=== PATIENT | male | born 1985 | race Caucasian/White ===

== ENCOUNTER 2017-09-01 01:20 | Emergency (ER) | payer MEDICARE, MEDICAID ==
[~2017-09-01] VITALS: Ht 188 cm; Wt 145.1 kg
[2017-09-01] MEDS ORDERED: ABILIFY2 MG ORAL (01:29)
[2017-09-01] MEDS ORDERED: SIMVASTATIN5 MG ORAL (01:30)
[2017-09-01] MEDS ORDERED: LOVENOX10 MG SUBQ (01:30)
[2017-09-01] MEDS ORDERED: ASPIRIN81 MG ORAL (01:30)
[2017-09-01 01:35] VITALS: BP 134/93
[2017-09-01 02:30] VITALS: BP 134/93
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
== END 2017-09-01 02:30 | disposition left against medical advice (07) ==
LOC: EDBD 01:20 → EMR 02:00
DX: R51 Headache (principal); R07.89 Other chest pain; Y08.89XA Assault by other specified means, initial encounter; Y92.9 Unspecified place or not applicable; Z86.73 Personal history of transient ischemic attack (TIA), and cerebral infarction without residual deficits
CPT/HCPCS: 99282

== ENCOUNTER 2017-09-01 15:17 | Inpatient (IN) | payer MEDICARE, MEDICAID ==
[~2017-09-01] VITALS: Ht 182.9 cm; Wt 158.8 kg
[~2017-09-01 15:17] MED LIST: ABILIFY2 MG ORAL; ASPIRIN81 MG ORAL; LOVENOX10 MG SUBQ; SIMVASTATIN5 MG ORAL
[2017-09-01 15:30] VITALS: BP 137/60
--- NOTE | 2017-09-01 15:39 | Emergency Room Report ---
History of Present Illness General Chief Complaint: General Complaint Source: Patient Present Illness HPI 32-year-old male, history of schizophrenia, history of CVA In 2 weeks ago, on Lovenox, with residual right lower trejo any weakness, presenting with rectal bleeding. Patient states that he has had rectal bleeding intermittently for the last 2-3 days. It is bright red blood but is sometimes also mixed with the brown stool. States that it does not happen all the time, states that it happened one time today, but he also had a completely normal brown episode of stool today. Denies any syncopal episodes, no abdominal pain, no chest pain shortness of breath or lightheadedness. Patient states that he has been injecting himself with the Lovenox. Patient was seen yesterday in the emergency room, and he eloped from the emergency room because he states that he did not like the doctor or the nurse caring for him. Patient states that he went to a bench, was found sleeping on the bench, was brought by EMS to [facility], was seen by psychiatry and then discharged last night. He states that he told them about the rectal bleeding but"did not do anything" Allergies: Coded Allergies: PHENYTOIN (Verified Allergy, Mild, 09/01/17) Patient History Past Medical History: see triage record Past Surgical History: none Pertinent Family History: none Reviewed Nursing Documentation: PMH: Agreed; PSxH: Agreed Nursing Documentation-PMH History Of Psychiatric Problem: Yes - SCHIZO Hx Cerebrovascular Accident: Yes Review of Systems All Other Systems: negative except mentioned in HPI Physical Exam Vital Signs Date Time Temp Pulse Resp B/P (MAP) Pulse Ox O2 Delivery O2 Flow Rate FiO2 09/01/17 15:12 97.7 80 16 97 Room Air 97.7 Sp02 EP Interpretation: reviewed, normal General Appearance: normal inspection, well appearing, no apparent distress, alert, GCS 15, non-toxic Head: normocephalic, atraumatic Eyes: bilateral eye normal inspection, bilateral eye PERRL, bilateral eye EOMI ENT: normal ENT inspection, normal pharynx, normal voice, moist mucus membranes Neck: normal inspection, full range of motion, supple Respiratory: normal inspection, lungs clear, normal breath sounds, no respiratory distress, no retraction, no wheezing, speaking full sentences, chest symmetrical Cardiovascular #1: normal inspection, regular rate, rhythm, no edema, normal capillary refill Cardiovascular #2: 2+ radial (R), 2+ radial (L) Gastrointestinal: normal inspection, non tender, soft, non-distended, no guarding Rectal: other - Brown stool which is guaiac negative, no hemorrhoids Musculoskeletal: normal inspection, back normal, normal range of motion, non- tender Neurologic: normal inspection, alert, oriented x3, responsive, motor strength/ tone normal, sensory intact, normal gait, speech normal Psychiatric: normal inspection, judgement/insight normal, memory normal Skin: normal inspection, normal color, no rash, warm/dry, well hydrated, normal turgor Medical Decision Making Diagnostic Impression: Primary Impression: Rectal bleeding ER Course 32-year-old male with rectal bleeding, on Lovenox Hemodynamically stable DDX: Coagulopathy, hemorrhoids, AVM, diverticulosis Plan: Obtain labs, ua ER course: Patient has been monitored during ED stay, HD stable + bloody bowel movements in ED Disposition: Patient is to be admitted to tele D/W hospitalist Dr Xavier Please note that this Emergency Department Report was dictated using [employer] ambassador technology software, occasionally this can lead to erroneous entry secondary to interpretation by the dictation equipment. EKG Diagnostic Results EP Interpretation: Yes Rate: normal Rhythm: NSR ST Segments: No acute changes ASA given to patient: No Rhythm Strip EP Interpretation: Yes Rate: 79 Rhythm: NSR, no PVCs, no ectopy Last Vital Signs Date Time Temp Pulse Resp B/P (MAP) Pulse Ox O2 Delivery O2 Flow Rate FiO2 09/01/17 15:12 97.7 80 16 97 Room Air 97.7 Disposition: ADMITTED INPATIENT Condition: Serious Farida Pinedo M.D. Sep 01, 2017 15:39
[2017-09-01 16:08] LABS: BASOPHILS % (AUTO) 0.8 % (0.0-2.0); EOSINOPHILS % (AUTO) 1.5 % (0.0-3.0); HEMATOCRIT 47.7 % (42.0-52.0); HEMOGLOBIN 16.5 G/DL (14.2-18.0); LYMPHOCYTES % (AUTO) 11.4 % (20.0-45.0); MEAN CORPUSCULAR VOLUME 84 FL (80-99); MONOCYTES % (AUTO) 7.6 % (1.0-10.0); NEUTROPHILS % (AUTO) 78.7 % (45.0-75.0); PLATELET COUNT 317 K/UL (150-450); RED BLOOD COUNT 5.69 M/UL (4.70-6.10); RED CELL DISTRIBUTION WIDTH 12.8 % (11.6-14.8); WHITE BLOOD COUNT 11.5 K/UL (4.8-10.8)
[2017-09-01 16:14] LABS: BILIRUBIN, URINE NEGATIVE (NEGATIVE); COLOR,URINE BROWN; GLUCOSE, URINE (UA) NEGATIVE (NEGATIVE); KETONES,URINE 3+ (NEGATIVE); LEUKOCYTE ESTERASE ,URINE 1+ (NEGATIVE); NITRITE,URINE NEGATIVE (NEGATIVE); PH,URINE 5 (4.5-8.0); PROTEIN,URINE 1+ (NEGATIVE); UROBILINOGEN,URINE 1 MG/DL (0.0-1.0)
[2017-09-01 16:15] LABS: APPEARANCE,URINE SLIGHTLY CLOUDY
[2017-09-01 16:17] LABS: ANION GAP 9 mmol/L (5-15); BLOOD UREA NITROGEN 12 mg/dL (7-18); CARBON DIOXIDE 29 MMOL/L (21-32); CHLORIDE 105 MMOL/L (98-107); CREATININE 1.2 MG/DL (0.55-1.30); POTASSIUM 3.3 MMOL/L (3.5-5.1); SODIUM 143 MMOL/L (136-145)
[2017-09-01 16:22] LABS: ALANINE AMINOTRANSFERASE 91 U/L (12-78); ALBUMIN 3.9 G/DL (3.4-5.0); ALBUMIN/GLOBULIN RATIO 1.1 (1.0-2.7); ALKALINE PHOSPHATASE 75 U/L (46-116); ASPARTATE AMINO TRANSFERASE 36 U/L (15-37); BILIRUBIN,TOTAL 0.6 MG/DL (0.2-1.0)
[2017-09-01 17:00] VITALS: BP 117/91
[2017-09-01 18:00] VITALS: BP 123/61
[2017-09-01 19:00] VITALS: BP 111/56
[2017-09-01 20:00] VITALS: BP 116/70
--- NOTE | 2017-09-01 20:31 | History & Physical ---
History and Physical History & Physicial HP dictated # [id number] CHARLY DAY Sep 01, 2017 20:31
[2017-09-01] MEDS: ARIPiprazole 2mg tab ORAL SCH (22:03)
[2017-09-01] MEDS: Pantoprazole Inj IVP SCH (22:04)
[2017-09-02] VITALS: BP 103/60
[2017-09-02 04:00] VITALS: BP 107/62
--- NOTE | 2017-09-02 04:15 | History and Physical Report ---
DATE OF ADMISSION: 09/01/2017 CHIEF COMPLAINT: Rectal bleed. HISTORY: This is a 32-year-old white male with a history of schizophrenia. He was at [facility] about two weeks ago and he was diagnosed with CVA with right-sided weakness. He was started on Lovenox and started four or five days ago. For the past few days, he has had severe rectal bleeding intermittently. He came to the emergency room yesterday, but he said he did not like the attitude of the ER physician, so he left, but then he started having large bleeding again when he was with a friend outside and decided to come back to the emergency room. He was admitted with a diagnosis of GI bleed. PAST MEDICAL HISTORY: The patient has a history of schizophrenia as mentioned and recent history of CVA and history of seizures. ALLERGIES: Dilantin causing shortness of breath. SOCIAL HISTORY: The patient has a history of smoking, but he says he stopped [id number] weeks ago. No history of alcohol abuse. REVIEW OF SYSTEMS: As above. PHYSICAL EXAMINATION: GENERAL: The patient is an obese male, in no acute distress. VITAL SIGNS: Blood pressure is 111/56, pulse is 64, temperature 98 degrees, and respirations 16. HEENT: Ona conjunctivae. Anicteric sclerae. NECK: Supple. LUNGS: Clear to auscultation. HEART: S1 and S2 without murmurs or rubs. ABDOMEN: Soft and nontender. EXTREMITIES: No cyanosis or edema. LABORATORY FINDINGS: CBC shows WBC of 11.5, hematocrit is 47.7, hemoglobin is 16.5, and platelets are 217,000. The chemistry panel shows a serum sodium of 142, potassium 3.3, and chloride 105. AST is 36 and ALT is 91. Lipase is 50. Glucose of 85. The UA shows 3+ ketones, unremarkable otherwise. ASSESSMENT: This is a 32-year-old white male with recent cerebrovascular accident and he was started on Lovenox and now he comes in with a few days history of rectal bleed. So far, it does not show on his hematocrit and hemoglobin, but he states he has been lightheaded. PLAN: The patient will be hydrated with IV fluids with the addition of potassium since the patient is hypokalemic. A GI consultation will be obtained. At this time, the patient will be on a clear liquid diet for possible endoscopy. His H and H will be followed closely and the patient will be transfused if needed. The question is if the patient needs to be on Lovenox and I am assuming that there is some embolic phenomenon, so I may ask farm tractor mechanic to come by and also give a consultation. Torsten Xavier M.D. DR: MATTHEW JOB#: [id number] CC:
[2017-09-02 07:18] LABS: BASOPHILS % (AUTO) 0.7 % (0.0-2.0); EOSINOPHILS % (AUTO) 2.9 % (0.0-3.0); HEMATOCRIT 41.4 % (42.0-52.0); HEMOGLOBIN 14.3 G/DL (14.2-18.0); LYMPHOCYTES % (AUTO) 17.7 % (20.0-45.0); MEAN CORPUSCULAR VOLUME 84 FL (80-99); MONOCYTES % (AUTO) 9.8 % (1.0-10.0); NEUTROPHILS % (AUTO) 68.9 % (45.0-75.0); PLATELET COUNT 251 K/UL (150-450); RED BLOOD COUNT 4.91 M/UL (4.70-6.10); RED CELL DISTRIBUTION WIDTH 12.8 % (11.6-14.8); WHITE BLOOD COUNT 7.6 K/UL (4.8-10.8)
[2017-09-02 08:00] VITALS: BP 121/80
[2017-09-02] MEDS: Pantoprazole Inj IVP SCH (08:37)
[2017-09-02] MEDS: ARIPiprazole 2mg tab ORAL SCH (08:37)
[2017-09-02 09:05] VITALS: BP 121/80
[2017-09-02] MEDS ORDERED: Bisacodyl EC 5mg tab ORAL ONE (11:45)
[2017-09-02] MEDS ORDERED: Magnesium Citrate Liq Btl ORAL ONE ×2 (11:45→12:00)
--- NOTE | 2017-09-02 11:50 | General Progress Note ---
Assessment/Plan Problem List: (1) GI bleed ICD Codes: K92.2 - Gastrointestinal hemorrhage, unspecified SNOMED: 87477105 (2) CVA (cerebral infarction) ICD Codes: I63.9 - Cerebral infarction, unspecified SNOMED: 155607598 (3) Seizure ICD Codes: R56.9 - Unspecified convulsions SNOMED: 83178492 Assessment/Plan GI consult follow H/H Discussed with dr Hall Subjective Allergies: Coded Allergies: PHENYTOIN (Verified Allergy, Mild, 09/01/17) Subjective feels hungry wants to eat Objective Last 24 Hour Vital Signs Date Time Temp Pulse Resp B/P (MAP) Pulse Ox O2 Delivery O2 Flow Rate FiO2 09/02/17 09:05 97.7 67 18 121/80 96 Room Air 97.7 09/02/17 04:00 97.3 60 18 107/62 96 Room Air 97.3 09/02/17 04:00 60 09/02/17 00:00 98.1 67 18 103/60 97 98.1 09/02/17 00:00 61 09/01/17 20:00 97.7 64 21 116/70 93 97.7 09/01/17 20:00 71 09/01/17 19:27 98.0 64 16 111/56 96 Room Air 98.0 09/01/17 19:00 64 16 111/56 96 09/01/17 18:00 69 18 123/61 98 09/01/17 17:00 65 17 117/91 98 09/01/17 15:30 98.0 71 20 137/60 98 98.0 09/01/17 15:12 97.7 80 16 12/86 97 Room Air 97.7 Intake and Output 09/01/17 09/02/17 19:00 07:00 Intake Total 1745 ml Output Total 350 ml Balance -350 ml 1745 ml Intake Oral 600 ml IV Total 1145 ml Output Urine Total 350 ml # Voids 1 Laboratory Tests 09/01/17 15:40: White Blood Count 11.5H, Red Blood Count 5.69, Hemoglobin 16.5, Hematocrit 47.7 , Mean Corpuscular Volume 84, Mean Corpuscular Hemoglobin 29.0, Mean Corpuscular Hemoglobin Concent 34.6, Red Cell Distribution Width 12.8, Platelet Count 317, Mean Platelet Volume 7.5, Neutrophils (%) (Auto) 78.7H, Lymphocytes ( %) (Auto) 11.4L, Monocytes (%) (Auto) 7.6, Eosinophils (%) (Auto) 1.5, Basophils (%) (Auto) 0.8, Prothrombin Time 10.1, Prothromb Time International Ratio 1.0, Activated Partial Thromboplast Time 28, Sodium Level 143, Potassium Level 3.3L, Chloride Level 105, Carbon Dioxide Level 29, Anion Gap 9, Blood Urea Nitrogen 12, Creatinine 1.2, Estimat Glomerular Filtration Rate > 60, Glucose Level 85, Calcium Level 9.0, Total Bilirubin 0.6, Aspartate Amino Transf (AST/SGOT) 36, Alanine Aminotransferase (ALT/SGPT) 91H, Alkaline Phosphatase 75, Total Protein 7.4, Albumin 3.9, Globulin 3.5, Albumin/Globulin Ratio 1.1, Lipase 50L 09/01/17 15:50: Urine Color Brown, Urine Appearance Slightly cloudy, Urine pH 5, Urine Specific [place] 1.025, Urine Protein 1+H, Urine Glucose (UA) Negative, Urine Ketones 3+H , Urine Occult Blood Negative, Urine Nitrite Negative, Urine Bilirubin Negative , Urine Urobilinogen 1H, Urine Leukocyte Esterase 1+H, Urine RBC 0-2H, Urine WBC 2-4, Urine Squamous Epithelial Cells Occasional, Urine Bacteria Occasional, Urine Mucus ModerateH 09/02/17 06:15: White Blood Count 7.6, Red Blood Count 4.91, Hemoglobin 14.3, Hematocrit 41.4L, Mean Corpuscular Volume 84, Mean Corpuscular Hemoglobin 29.1, Mean Corpuscular Hemoglobin Concent 34.5, Red Cell Distribution Width 12.8, Platelet Count 251, Mean Platelet Volume 7.6, Neutrophils (%) (Auto) 68.9, Lymphocytes (%) (Auto) 17.7L, Monocytes (%) (Auto) 9.8, Eosinophils (%) (Auto) 2.9, Basophils (%) (Auto ) 0.7 Height (Feet): 6 Height (Inches): 0.00 Weight (Pounds): 350 Cardiovascular: normal rate Respiratory/Chest: lungs clear Edema: no edema noted Generalized CHARLY DAY Sep 02, 2017 11:50
[2017-09-02 12:00] VITALS: BP 105/70
--- NOTE | 2017-09-02 13:45 | General Progress Note ---
Assessment/Plan Assessment/Plan GI CONSULT Dictated Will arrange for EGD/Colon in am Thank you Nora Hall MD Subjective Allergies: Coded Allergies: PHENYTOIN (Verified Allergy, Mild, 09/01/17) Objective Last 24 Hour Vital Signs Date Time Temp Pulse Resp B/P (MAP) Pulse Ox O2 Delivery O2 Flow Rate FiO2 09/02/17 12:00 97.7 76 18 105/70 99 Room Air 97.7 09/02/17 09:05 97.7 67 18 121/80 96 Room Air 97.7 09/02/17 08:00 97.7 67 18 121/80 96 Room Air 97.7 09/02/17 04:00 97.3 60 18 107/62 96 Room Air 97.3 09/02/17 04:00 60 09/02/17 00:00 98.1 67 18 103/60 97 98.1 09/02/17 00:00 61 09/01/17 20:00 97.7 64 21 116/70 93 97.7 09/01/17 20:00 71 09/01/17 19:27 98.0 64 16 111/56 96 Room Air 98.0 09/01/17 19:00 64 16 111/56 96 09/01/17 18:00 69 18 123/61 98 09/01/17 17:00 65 17 117/91 98 09/01/17 15:30 98.0 71 20 137/60 98 98.0 09/01/17 15:12 97.7 80 16 12/86 97 Room Air 97.7 Intake and Output 09/01/17 09/02/17 19:00 07:00 Intake Total 1745 ml Output Total 350 ml Balance -350 ml 1745 ml Intake Oral 600 ml IV Total 1145 ml Output Urine Total 350 ml # Voids 1 Laboratory Tests 09/01/17 15:40: White Blood Count 11.5H, Red Blood Count 5.69, Hemoglobin 16.5, Hematocrit 47.7 , Mean Corpuscular Volume 84, Mean Corpuscular Hemoglobin 29.0, Mean Corpuscular Hemoglobin Concent 34.6, Red Cell Distribution Width 12.8, Platelet Count 317, Mean Platelet Volume 7.5, Neutrophils (%) (Auto) 78.7H, Lymphocytes ( %) (Auto) 11.4L, Monocytes (%) (Auto) 7.6, Eosinophils (%) (Auto) 1.5, Basophils (%) (Auto) 0.8, Prothrombin Time 10.1, Prothromb Time International Ratio 1.0, Activated Partial Thromboplast Time 28, Sodium Level 143, Potassium Level 3.3L, Chloride Level 105, Carbon Dioxide Level 29, Anion Gap 9, Blood Urea Nitrogen 12, Creatinine 1.2, Estimat Glomerular Filtration Rate > 60, Glucose Level 85, Calcium Level 9.0, Total Bilirubin 0.6, Aspartate Amino Transf (AST/SGOT) 36, Alanine Aminotransferase (ALT/SGPT) 91H, Alkaline Phosphatase 75, Total Protein 7.4, Albumin 3.9, Globulin 3.5, Albumin/Globulin Ratio 1.1, Lipase 50L 09/01/17 15:50: Urine Color Brown, Urine Appearance Slightly cloudy, Urine pH 5, Urine Specific [place] 1.025, Urine Protein 1+H, Urine Glucose (UA) Negative, Urine Ketones 3+H , Urine Occult Blood Negative, Urine Nitrite Negative, Urine Bilirubin Negative , Urine Urobilinogen 1H, Urine Leukocyte Esterase 1+H, Urine RBC 0-2H, Urine WBC 2-4, Urine Squamous Epithelial Cells Occasional, Urine Bacteria Occasional, Urine Mucus ModerateH 09/02/17 06:15: White Blood Count 7.6, Red Blood Count 4.91, Hemoglobin 14.3, Hematocrit 41.4L, Mean Corpuscular Volume 84, Mean Corpuscular Hemoglobin 29.1, Mean Corpuscular Hemoglobin Concent 34.5, Red Cell Distribution Width 12.8, Platelet Count 251, Mean Platelet Volume 7.6, Neutrophils (%) (Auto) 68.9, Lymphocytes (%) (Auto) 17.7L, Monocytes (%) (Auto) 9.8, Eosinophils (%) (Auto) 2.9, Basophils (%) (Auto ) 0.7 Height (Feet): 6 Height (Inches): 0.00 Weight (Pounds): 350 NORA HALL Sep 02, 2017 13:45
[2017-09-02] MEDS ORDERED: Fleet's Enema 133ml RECTAL ONE (14:00)
[2017-09-02] MEDS ORDERED: traMADol 50mg tab ORAL PRN (14:45)
[2017-09-02] MEDS ORDERED: Sorbitol Solution UD 30ml ORAL ONE (18:00)
--- NOTE | 2017-09-02 19:30 | Consultation ---
DATE OF CONSULTATION: 09/02/2017 GASTROENTEROLOGY CONSULTATION CONSULTING PHYSICIAN: Nora Hall M.D. CHIEF COMPLAINT: I was asked to see this patient by Dr. Torsten Xavier for evaluation of rectal bleeding. HISTORY OF PRESENT ILLNESS: The patient is a 32-year-old white man with a history of schizophrenia and some type of head injury, who has had multiple strokes in the past year. He apparently presented to [facility] about two weeks ago with new onset of stroke with right-sided hemiparesis. He was started on Lovenox about the same time or so. Since he has been started on Lovenox, he has noted rectal bleeding, which is on a daily basis. He came to the emergency room, left without being seen, and then returned back to the emergency room where he has been admitted. The patient has been evaluated and scheduled for colonoscopy tomorrow, but he demanded to eat solid food, otherwise, he would leave against medical advice. He was given one meal of solid food and then with consideration of a trial for colonoscopy, although this may not be possible tomorrow if he is inadequately prepared. The patient understands that his action to demand solid food would compromise his colonoscopy tomorrow and he is willing to take that chance. For the time being, the Lovenox , as it has been also explained to the patient, has to be withheld until the etiology his bleeding is identified. The patient has never had endoscopy or colonoscopy before. PAST MEDICAL HISTORY: History of schizophrenia, stroke, seizures, and head injury. ALLERGIES: Dilantin. FAMILY HISTORY: Noncontributory. SOCIAL HISTORY: The patient has had a history of smoking, but he stopped about few weeks ago. He does not drink alcohol. REVIEW OF SYSTEMS: Otherwise, negative. MEDICATIONS: See chart list for details. PHYSICAL EXAMINATION: GENERAL: Obese white man with a right-sided limp while walking. HEENT: Normocephalic and atraumatic. Sclerae anicteric. Oropharynx clear. NECK: Supple. CHEST: Clear to auscultation. CARDIOVASCULAR: Revealed a regular rate. ABDOMEN: Obese, soft, and good bowel sounds. EXTREMITIES: No edema. LABORATORY AND DIAGNOSTIC DATA: Laboratory data has been noted. ASSESSMENT: This patient presents with a stroke, requiring anticoagulation, but also gastrointestinal bleeding, which necessitated withholding anticoagulation. This patient demanded solid food or else he would leave against medical advice, and therefore, he was given one solid meal with the agreement that from hereon, he will be on clear liquid diet until tomorrow. An attempt will be made to clean him out for a colonoscopy, although this might be difficult especially since he is refusing GoLYTELY. He states he cannot take a gallon size medication. He states that magnesium citrate and Dulcolax can be given, but they may result in suboptimal preparation. RECOMMENDATIONS: 1. Diet per discussion with the patient. 2. Magnesium citrate. 3. Clear liquid diet after lunch. 4. Attempt at endoscopy and colonoscopy tomorrow. Thank you for asking me to participate in the care of this patient. Nora Hall M.D. DR: HOMER JOB#: [id number] CC: QUETA
[2017-09-03] MEDS ORDERED: Fleet's Enema 133ml RECTAL ONE (08:00)
--- NOTE | 2017-09-03 19:18 | Cardiology Report ---
APPROVED REPORT EKG Measurement Heart [id number] Normal sinus rhythm Normal ECG
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
--- NOTE | 2017-09-04 12:36 | Discharge Summary ---
Discharge Summary Discharge Summary Discharge Summary DATE OF ADMISSION: 09/01/2017 DATE OF DISCHARGE: 09/02/2017 REASON FOR ADMISSION: 31 years old male with past medical history of schizophrenia and recent CVA, on Lovenox, presented with the complaint of rectal bleeding. Rectal bleeding started few days ago, and patient reported lightheadedness. Upon evaluation in emergency room stable hemoglobin and hematocrit, WBC -11.5, potassium- 3.3. Patient was admitted with diagnoses of rectal bleeding, history of recent CVA and schizophrenia. HOSPITAL COURSE: Patient was admitted and started on IV fluids with potassium. Lovenox was stopped. Patient was on clear liquid diet. GI consult and psychiatric consult were requested. Hemoglobin and hematocrit were closely monitored. Gastrointestinal specialist seen and evaluated the patient. The patient demanded solid food. GI specialist explained to the patient that demanding solid food would compromise his colonoscopy. Patient was given one meal of solid food with condition that from now on he will be on clear liquid diet in preparation for colonoscopy. Per GI it may be difficult since patient refused Golytely . He stated he could not take a gallon size medication. Magnesium citrate and Dulcolax were ordered but that would likely to result in suboptimal preparation as per GI. Psychiatry seen and evaluated the patient. Patient was taking Abilify, continue as per psychiatrist. Psychiatry stated that patient was not in imminent danger to himself or to other. Patient decided to sign again medical advice. The risks and consequences of signing against medical advise were discussed with the patient. Patient verbalized understanding, signed the AMA form and left FINAL DIAGNOSES: 1. Rectal bleeding 2. History of recent CVA 3. Schizophrenia DISCHARGE INSTRUCTIONS: Patient signed AGAINST MEDICAL ADVICE I have been assigned to dictate discharge summary for this account. I was not involved in the patient's management. Tammie Alvarez NP ([place]) Sep 04, 2017 12:36
== END 2017-09-02 14:57 | disposition left against medical advice (07) | DRG 378 ==
LOC: EDBD 15:17 → EMR 15:40 → 2E 16:21 → EDBEDREQ 16:53
DX: K62.5 Hemorrhage of anus and rectum (principal); I69.951 Hemiplegia and hemiparesis following unspecified cerebrovascular disease affecting right dominant side; Z68.42 Body mass index [BMI] 45.0-49.9, adult; F20.9 Schizophrenia, unspecified; E87.6 Hypokalemia; E66.9 Obesity, unspecified; Z53.21 Procedure and treatment not carried out due to patient leaving prior to being seen by health care provider; Z87.891 Personal history of nicotine dependence
CPT/HCPCS: 36415; 80053; 81003; 83690; 85025; 85610; 85730; 86850; 86900; 86901; 87081; 93005; 99285; J8499

== ENCOUNTER 2017-10-01 21:49 | Emergency (ER) | payer MEDICARE, MEDICAID ==
[~2017-10-01] VITALS: Ht 188 cm; Wt 158.8 kg
[~2017-10-01 21:49] MED LIST changes: +UNOBMED
[2017-10-01 21:52] VITALS: BP 142/90
[2017-10-01 22:11] VITALS: BP 142/90
--- NOTE | 2017-10-01 22:13 | Emergency Room Report ---
History of Present Illness General Chief Complaint: Behavioral Complaint Source: Patient, EMS Present Illness HPI Is a 32-year-old male presents with chief complaint of any voices. This is a chronic problem. Does not worsening. No fever chills but no nausea no vomiting. No suicidal thought homicidal thought. He said he hasn't taken his Abilify for 2 months. Denies any other complaint. Allergies: Coded Allergies: PHENYTOIN (Verified Allergy, Mild, 09/01/17) Patient History Past Medical History: see triage record, old chart reviewed Past Surgical History: other Pertinent Family History: none Social History: Denies: smoking Immunizations: other Reviewed Nursing Documentation: PMH: Agreed; PSxH: Agreed Nursing Documentation-PMH Past Medical History: No History, Except For Hx Hypertension: Yes Hx Diabetes: Yes Hx Cancer: No History Of Psychiatric Problem: Yes - Schizophrenia, Autism Hx Cerebrovascular Accident: Yes - Right side deficit Hx Seizures: Yes Review of Systems Eye: Denies: eye pain, blurred vision ENT: Denies: ear pain, nose congestion, throat swelling Respiratory: Denies: cough, shortness of breath Cardiovascular: Denies: chest pain, palpitations Gastrointestinal: Denies: abdominal pain, diarrhea, nausea, vomiting Musculoskeletal: Denies: back pain, joint pain Skin: Denies: rash Neurological: Denies: headache, numbness Endocrine: Denies: increased thirst, increased urine Hematologic/Lymphatic: Denies: easy bruising All Other Systems: negative except mentioned in HPI Physical Exam Vital Signs Date Time Temp Pulse Resp B/P (MAP) Pulse Ox O2 Delivery O2 Flow Rate FiO2 10/01/17 21:43 98.8 90 14 142/90 100 Room Air 98.8 Sp02 EP Interpretation: reviewed, normal General Appearance: well appearing, no apparent distress, alert, obese Head: normocephalic, atraumatic Eyes: bilateral eye PERRL, bilateral eye EOMI ENT: hearing grossly normal, normal pharynx Neck: full range of motion, supple, no meningismus Respiratory: chest non-tender, lungs clear, normal breath sounds Cardiovascular #1: regular rate, rhythm, no murmur Gastrointestinal: normal bowel sounds, non tender, no mass, no organomegaly, no bruit, non-distended Musculoskeletal: back normal, gait/station normal, normal range of motion Psychiatric: mood/affect normal Skin: warm/dry Medical Decision Making Diagnostic Impression: Primary Impression: Psychosis Qualified Codes: F20.9 - Schizophrenia, unspecified ER Course Patient with chief complaint of psychosis, schizophrenia. He does not want antipsychotic medication. He has no suicidal thoughts or homicidal thought. I see no criteria for 5150. His psychosis is stable. He doesn't want to stay so will discharge. Last Vital Signs Date Time Temp Pulse Resp B/P (MAP) Pulse Ox O2 Delivery O2 Flow Rate FiO2 10/01/17 21:43 98.8 90 14 142/90 100 Room Air 98.8 Status: unchanged Disposition: HOME, SELF-CARE Condition: Stable Additional Instructions: follow-up with mental health in a week. Return if worse. MADISON MENCHACA M.D. Oct 01, 2017 22:13
== END 2017-10-01 22:11 | disposition home or self-care (01) ==
LOC: EDBD 21:49 → EMR 22:00
DX: F23 Brief psychotic disorder (principal); I10 Essential (primary) hypertension; E11.9 Type 2 diabetes mellitus without complications; F84.0 Autistic disorder; Z88.8 Allergy status to other drugs, medicaments and biological substances; I69.851 Hemiplegia and hemiparesis following other cerebrovascular disease affecting right dominant side
CPT/HCPCS: 99284

== ENCOUNTER 2017-10-01 22:52 | Emergency (ER) | payer MEDICARE, MEDICAID ==
[~2017-10-01] VITALS: Ht 188 cm; Wt 158.8 kg
[2017-10-01] MEDS ORDERED: Haloperidol 5mg/ml Inj IM ONE (23:30)
[2017-10-01 23:31] LABS: BASOPHILS % (AUTO) 0.5 % (0.0-2.0); EOSINOPHILS % (AUTO) 3.4 % (0.0-3.0); HEMATOCRIT 42.4 % (42.0-52.0); HEMOGLOBIN 15.1 G/DL (14.2-18.0); LYMPHOCYTES % (AUTO) 15.2 % (20.0-45.0); MEAN CORPUSCULAR VOLUME 83 FL (80-99); MONOCYTES % (AUTO) 5.7 % (1.0-10.0); NEUTROPHILS % (AUTO) 75.1 % (45.0-75.0); PLATELET COUNT 261 K/UL (150-450); RED CELL DISTRIBUTION WIDTH 12.6 % (11.6-14.8); WHITE BLOOD COUNT 9.9 K/UL (4.8-10.8)
--- NOTE | 2017-10-01 23:47 | Emergency Room Report ---
History of Present Illness General Chief Complaint: Suicidal Source: Patient, Medical Record Present Illness HPI Is a 32-year-old male with a history of schizophrenia. I just saw this patient today. Initially came in with chief complaint of psychosis. He was asking for Ativan which I held off. Patient left and called 911 saying that he was suicidal. He said he went to sit on the street to get run over by a car. He has multiple admission in the past. Denies any other complaint. Denies drug use or alcohol use. Police placed him on a 5150. Allergies: Coded Allergies: PHENYTOIN (Verified Allergy, Mild, 09/01/17) Patient History Past Medical History: see triage record, old chart reviewed, CVA/TIA, psych hx Past Surgical History: other Pertinent Family History: none Social History: Denies: smoking Immunizations: other Reviewed Nursing Documentation: PMH: Agreed; PSxH: Agreed Nursing Documentation-PMH Past Medical History: No History, Except For Hx Hypertension: Yes Hx Diabetes: Yes Hx Cancer: No History Of Psychiatric Problem: Yes - Schizophrenia, Autism Hx Neurological Problems: Yes - Parkinson' s disease Hx Cerebrovascular Accident: Yes - Right side deficit Hx Seizures: Yes Review of Systems Eye: Denies: eye pain, blurred vision ENT: Denies: ear pain, nose congestion, throat swelling Respiratory: Denies: cough, shortness of breath Cardiovascular: Denies: chest pain, palpitations Gastrointestinal: Denies: abdominal pain, diarrhea, nausea, vomiting Musculoskeletal: Denies: back pain, joint pain Skin: Denies: rash Neurological: Denies: headache, numbness Endocrine: Denies: increased thirst, increased urine Hematologic/Lymphatic: Denies: easy bruising All Other Systems: negative except mentioned in HPI Physical Exam Vital Signs Date Time Temp Pulse Resp B/P (MAP) Pulse Ox O2 Delivery O2 Flow Rate FiO2 10/01/17 22:55 98.2 89 16 142/89 99 Room Air 98.2 vitals normal Sp02 EP Interpretation: reviewed, normal General Appearance: well appearing, no apparent distress, alert, obese Head: normocephalic, atraumatic Eyes: bilateral eye PERRL, bilateral eye EOMI ENT: hearing grossly normal, normal pharynx Neck: full range of motion, supple, no meningismus Respiratory: chest non-tender, lungs clear, normal breath sounds Cardiovascular #1: regular rate, rhythm, no murmur Gastrointestinal: normal bowel sounds, non tender, no mass, no organomegaly, no bruit, non-distended Musculoskeletal: back normal, gait/station normal, normal range of motion Psychiatric: mood/affect normal Skin: warm/dry Medical Decision Making Diagnostic Impression: Primary Impression: Psychosis Qualified Codes: F20.0 - Paranoid schizophrenia Additional Impressions: Suicidal ideation Morbid obesity with BMI of 45.0-49.9, adult ER Course Patient with acute psychosis and suicidal thoughts. Once labs and urine are back, he will be medically clear. labs came back unremarkable. Drug screen negative. Pt has been calm here. He is medically cleared for psych eval Lab Results Impression labs unremarkable. Last Vital Signs Date Time Temp Pulse Resp B/P (MAP) Pulse Ox O2 Delivery O2 Flow Rate FiO2 10/01/17 22:55 98.2 89 16 142/89 99 Room Air 98.2 Status: improved Disposition: XFER TO PSYCH HOSP/UNIT Condition: Stable Referrals: NOT CHOSEN TRACIE/,REFERRING (PCP) MADISON MENCHACA M.D. Oct 01, 2017 23:47
[2017-10-01 23:48] LABS: ANION GAP 9 mmol/L (5-15); BLOOD UREA NITROGEN 10 mg/dL (7-18); CALCIUM 8.9 MG/DL (8.5-10.1); CARBON DIOXIDE 26 MMOL/L (21-32); CHLORIDE 106 MMOL/L (98-107); POTASSIUM 3.8 MMOL/L (3.5-5.1); SODIUM 141 MMOL/L (136-145)
[2017-10-01 23:52] LABS: ALANINE AMINOTRANSFERASE 51 U/L (12-78); ALBUMIN 3.8 G/DL (3.4-5.0); ALKALINE PHOSPHATASE 83 U/L (46-116); ASPARTATE AMINO TRANSFERASE 83 U/L (15-37); BILIRUBIN,TOTAL 0.3 MG/DL (0.2-1.0)
[2017-10-02 00:19] LABS: APPEARANCE,URINE CLEAR; BILIRUBIN, URINE NEGATIVE (NEGATIVE); GLUCOSE, URINE (UA) NEGATIVE (NEGATIVE); KETONES,URINE NEGATIVE (NEGATIVE); NITRITE,URINE NEGATIVE (NEGATIVE); PH,URINE 6 (4.5-8.0); PROTEIN,URINE NEGATIVE (NEGATIVE); UROBILINOGEN,URINE NORMAL MG/DL (0.0-1.0)
[2017-10-02 00:21] LABS: COLOR,URINE YELLOW; LEUKOCYTE ESTERASE ,URINE NEGATIVE (NEGATIVE)
[2017-10-02 02:06] VITALS: BP 112/66
[2017-10-02 04:21] VITALS: BP 120/80
[2017-10-02 06:41] VITALS: BP 104/74
[2017-10-02 11:28] VITALS: BP 110/80
[2017-10-02] MEDS ORDERED: DiphenhydrAMINE 50mg/ml Inj IM ONE (11:30)
[2017-10-02] MEDS ORDERED: Ziprasidone 20mg cap ORAL ONE (11:30)
== END 2017-10-02 11:30 ==
LOC: EMR 23:00
DX: F20.0 Paranoid schizophrenia (principal); R45.851 Suicidal ideations; E66.01 Morbid (severe) obesity due to excess calories; Z68.42 Body mass index [BMI] 45.0-49.9, adult; Z88.8 Allergy status to other drugs, medicaments and biological substances; I10 Essential (primary) hypertension; E11.9 Type 2 diabetes mellitus without complications; G20 Parkinson's disease; G81.91 Hemiplegia, unspecified affecting right dominant side
CPT/HCPCS: 36415; 80053; 80307; 81003; 85025; 99284; G0480; 80329